=== PATIENT | female | born 1990 | race Caucasian/White ===

== ENCOUNTER → 2020-02-22 16:03 | Outpatient (BNVA) | payer MEDICAID, SELFPAY | PROVIDERS: Visit Provider Advanced Practice Midwife | DX: Z76.89 Persons encountering health services in other specified circumstances (principal) ==

== ENCOUNTER 2020-06-12 07:07 | Inpatient (IN) | payer MEDICAID, SELFPAY ==
[2020-06-12] VITALS (7 sets, daily range): BP systolic 94–131; BP diastolic 55–65; PULSE 59–88; RESP 16–18; TEMP 36–37; O2SAT 98–100; BMI 31.4
--- NOTE | ~2020-06-12 | CT_ITS ---
EXAMINATION: CT ABDOMEN AND PELVIS WITH CONTRAST CLINICAL INFORMATION: Right lower quadrant pain COMPARISON: None TECHNIQUE: Multidetector volumetric images were obtained from the superior aspect of the liver through the pubic symphysis following administration 85 mL of Omnipaque 350 intravenous contrast. Sagittal and coronal reformatted images were obtained on the technologist's workstation. Oral contrast: Yes This CT examination was performed using dose optimization techniques as appropriate, variously including the following: *Automated exposure control *Adjustment of mA and/or kV according to patient size (this includes techniques or standardized protocols for targeted exams where dose is matched to indication/reason for exam; i.e. extremities or head) *Use of iterative reconstruction technique DLP: 624 mGy-cm FINDINGS: LUNG BASES: The visualized lung bases are unremarkable. LIVER, GALLBLADDER, AND BILIARY TREE: The liver is normal in size, shape, and attenuation. No focal hepatic lesion or biliary ductal dilatation is present. The gallbladder is unremarkable with no evidence of radiopaque gallstones, gallbladder wall thickening, or obvious pericholecystic inflammatory changes. PANCREAS: Unremarkable. SPLEEN: Unremarkable. ADRENAL GLANDS: Unremarkable. KIDNEYS AND URETERS: The kidneys are normal in size, shape, and attenuation. No hydronephrosis, hydroureter, or calculi seen. No perinephric stranding. BLADDER: Unremarkable. GASTROINTESTINAL TRACT: The small and large bowel are unremarkable. The appendix is unremarkable. ABDOMINAL WALL: No significant hernia is appreciated. LYMPH NODES: Normal. VASCULAR: Unremarkable. PELVIC VISCERA: The uterus is slightly to the right of midline. Adnexa appear unremarkable. There is trace fluid in the pelvis. OSSEOUS STRUCTURES: Unremarkable. CT/CT abdomen pelvis w con IMPRESSION: Normal-appearing appendix. The uterus is slightly to the right of midline. The adnexa appear unremarkable. There is trace fluid in the pelvis.
--- NOTE | ~2020-06-12 | US_ITS ---
EXAMINATION: ULTRASOUND PELVIS AND TRANSVAGINAL. CLINICAL INFORMATION: Right lower quadrant pain, free fluid seen on CT. COMPARISON: None TECHNIQUE: Transabdominal and transvaginal imaging of pelvis is performed. FINDINGS: The uterus is anteverted and anteflexed measuring 13.2 cm in length, 4.0 cm in AP and 4.8 cm in transverse dimension. The endometrial thickness is 0.7 cm. There are small nabothian cysts in the cervix. Minimal free fluid seen in the cervix as well. The right ovary measures 4.3 x 2.7 x 3.5 cm and 21.3 mL volume. It appears unremarkable. The left ovary measures 2.7 x 1.5 x 2.7 cm and 5.7 mL volume. It appears unremarkable There is no free fluid in the cul-de-sac. US/US pelvic and transvaginal IMPRESSION: Unremarkable uterus and ovaries. Small nabothian cysts in cervix. There is minimal fluid in the cervix.
--- NOTE | 2020-06-12 07:48 | ED.ABDPAIN ---
HPI - Abdominal Pain General Chief Complaint: Abdominal Pain Stated Complaint: low rt abd pain Time Seen by Provider: 06/12/20 07:29 Source: patient Mode of arrival: ambulatory Limitations: no limitations History of Present Illness HPI narrative: Patient comes to the emergency room complaining of right lower quadrant pain. Patient states it started last night around 20:00. Patient denies nausea vomiting or diarrhea. Patient states initially it was a bit achy, but the pain got worse throughout the night. This morning patient called her primary care physician and patient was instructed to come to the emergency room. Patient states the pain is dull, constant, nonradiating, 6/10. Patient denies chest pain, no shortness of breath, no dysuria. Patient denies vaginal discharge, states she has no concerns for STDs MD elicited complaint: abdominal pain Related Data Previous Rx's Medication Instructions Recorded norethindrone 1.5 mg-ethinyl 1 tab PO DAILY #28 tab 03/25/20 estradiol 30 mcg(21)/iron 75 mg(7) tablet Allergies Allergy/AdvReac Type Severity Reaction Status Date / Time No Known Drug Allergies Allergy Mild NONE Verified 02/22/20 16:20 [NO KNOWN DRUG ALLERGIES] metoclopramide [From Reglan] AdvReac Irritable Verified 06/12/20 07:41 latex Allergy Unknown hives Uncoded 08/22/19 00:00 Review of Systems Review of Systems Constitutional : No Weight loss, No Fever, No Chills, No Night Sweats, No Fatigue, No Malaise ENT/Mouth : No Hearing loss, No Ear Pain, No Nasal Congestion, No Sinus Pain, No Hoarseness, No sore throat, No Rhinorrhea, No Swallowing Difficulty Eyes: No Eye Pain, No Swelling, No Redness, No Foreign Body, No Discharge, No Vision Changes Cardiovascular : No Chest Pain, No SOB, No Dyspnea on Exertion, No Orthopnea, No Edema, No Palpitations Respiratory : No Cough, No Sputum, No Wheezing, No Smoke Exposure, No Dyspnea Gastrointestinal : No Nausea, No Vomiting, No Diarrhea, No Constipation, complaining of 6/10 right lower quadrant pain No Hematochezia, No Melena Genitourinary : no irregular bleeding, No Dysuria, No Urinary Frequency, No Hematuria, No Urinary Incontinence, No Urgency, No Flank Pain, No Urinary Flow Changes, No Hesitancy Musculoskeletal : No joint pain, No Myalgias, No Joint Swelling Skin : No Skin Lesions, No rash Neuro : No Weakness, No Numbness, No Paresthesias, No Loss of Consciousness, No Dizziness, No Headache Psych : No Anxiety/Panic, No Depression, No SI/HI/AH/VH, No Social Issues, Heme/Lymph: No Bruising, No Bleeding,No Lymphadenopathy Endocrine : No Polyuria, No Polydipsia, No Temperature Intolerance Physical Exam Vital Signs: Vital Signs: Last Vital Signs Temp 98.2 F 06/12/20 12:09 Pulse 70 06/12/20 12:09 Resp 17 06/12/20 12:09 BP 97/57 L 06/12/20 12:09 Pulse Ox 99 06/12/20 12:09 Body Mass Index 31.4 Appearance: Alert. Oriented X3. No acute distress. Eyes: Pupils equal, round and reactive to light. ENT: Pharynx normal. Neck: Normal inspection. Neck supple. No lymph nodes noted. No crepitus CVS: Normal heart rate and rhythm. Pulses normal. Normal S1 and S2 Respiratory: No respiratory distress. Breath sounds normal. No Wheezing. No rales Abdomen: Soft tender to palpation over the McBurney's point, positive obturator sign, negative Yo sign, No rigidity. No distention Skin: Skin warm and dry. Normal skin color. Normal skin turgor. Extremities: No lower extremity edema. No lower extremity edema. No Lacerations. No Rash Neuro: Oriented X 3. No motor deficit. No sensory deficit. Moving all extermities. No slurred speech. Course Course Course Narrative: I discussed the labs and CT scan with the patient, patient continues having right lower quadrant pain. Patient is now going to be going for a pelvic ultrasound Pelvic ultrasound did not show any pathology that could explain the patient's pain. Pelvic exam did not show any discharge or had any cervical motion tenderness. Labs for STDs pending. I discussed the patient with Dr. Davila, he will evaluate the patient Dr. Davila evaluated the patient, at this time appendicitis is not suspect. Recommendations: OBGYN consult Dr. kimberly nuñez to evaluate the patient, recommendations are to start patient on p.o. antibiotics, Flagyl and levofloxacin. Discussed with patient, she states that she is still having significant pain in the right lower quadrant. Patient will be admitted for observation by Dr. Davila [facility] [place] - Abdominal Pain Lab Data Result diagrams: 06/12/20 07:48 06/12/20 07:48 Labs: Lab Results 06/12/20 06/12/20 06/12/20 Range/Units 07:48 07:48 07:48 WBC 9.1 (4.8-10.8) X10*3/uL RBC 4.14 L (4.20-5.50) X10*6/uL Hgb 11.5 L (12.0-16.0) g/dl Hct 37.0 (37-47) % MCV 89.4 (80-98) fL MCH 27.8 (27.0-33.0) pg MCHC 31.1 (31.0-35.0) g/dl RDW 14.0 (11.0-16.0) % Plt Count 425 H (160-400) X10*3/uL MPV 9.3 L (9.4-12.3) fL Immature Gran % (Auto) 0.2 (0.0-0.4) % Neut % (Auto) 68.8 (45-73) % Lymph % (Auto) 22.4 (20-40) % [place] % (Auto) 6.3 (2-11) % Eos % (Auto) 1.5 (0-4) % Baso % (Auto) 0.8 (0-2) % Lymph # (Auto) 2.1 (1.2-4.9) X10*3/uL [place] # (Auto) 0.6 (0.1-1.2) X10*3/uL Eos # (Auto) 0.1 (0.0-0.4) X10*3/uL Baso # (Auto) 0.1 (0.0-0.2) X10*3/uL Abs Immat Gran (auto) 0.02 (0.00-0.03) X10*3/uL Absolute Neuts (auto) 6.3 (2.0-8.3) X10*3/uL Absolute Nucleated RBC 0.000 (0.0-0.012) X10*3/uL Nucleated RBC % (auto) 0.0 (0.0-0.2) /100WBC Sodium 137 (135-145) mmol/L Potassium 4.1 (3.3-5.1) mmol/L Chloride 106 (96-108) mmol/L Carbon Dioxide 22 (22-29) mmol/L Anion Gap 13 (12-20) BUN 9 (9-16) mg/dL Creatinine 0.78 (0.5-1.4) mg/dL Estim Creat Clear Calc 102.9 Estimated GFR > 60 Random Glucose 100 (60-115) mg/dL Calcium 8.5 (8.4-10.2) mg/dL Total Bilirubin 0.3 (0.0-1.0) mg/dL Direct Bilirubin 0.2 (0.0-0.5) mg/dL AST 18 (5-31) U/L ALT 16 (0-31) U/L Alkaline Phosphatase 52 (39-117) U/L Total Protein 7.1 (6.5-8.0) g/dL Albumin 4.0 (3.5-5.0) g/dL Lipase 30 (8-78) U/L Urine Color YELLOW Urine Appearance CLEAR Urine pH 6.5 (5.0-8.0) Ur Specific [place] 1.020 (1.005-1.025) Urine Protein NEG (NEG-TRACE) MG/DL Urine Glucose (UA) NEG (NEG) MG/DL Urine Ketones NEG (NEG) MG/DL Urine Blood TRACE (NEG) Urine Nitrite NEG (NEG) Ur Leukocyte Esterase NEG (NEG) Urine RBC 0-2 (0) /HPF Urine WBC 0-2 (0-4) /HPF Ur Squamous Epith Cells 3+ /LPF Urine Bacteria TRACE /LPF Urine Test (NEGATIVE) 06/12/20 Range/Units 07:48 WBC (4.8-10.8) X10*3/uL RBC (4.20-5.50) X10*6/uL Hgb (12.0-16.0) g/dl Hct (37-47) % MCV (80-98) fL MCH (27.0-33.0) pg MCHC (31.0-35.0) g/dl RDW (11.0-16.0) % Plt Count (160-400) X10*3/uL MPV (9.4-12.3) fL Immature Gran % (Auto) (0.0-0.4) % Neut % (Auto) (45-73) % Lymph % (Auto) (20-40) % [place] % (Auto) (2-11) % Eos % (Auto) (0-4) % Baso % (Auto) (0-2) % Lymph # (Auto) (1.2-4.9) X10*3/uL [place] # (Auto) (0.1-1.2) X10*3/uL Eos # (Auto) (0.0-0.4) X10*3/uL Baso # (Auto) (0.0-0.2) X10*3/uL Abs Immat Gran (auto) (0.00-0.03) X10*3/uL Absolute Neuts (auto) (2.0-8.3) X10*3/uL Absolute Nucleated RBC (0.0-0.012) X10*3/uL Nucleated RBC % (auto) (0.0-0.2) /100WBC Sodium (135-145) mmol/L Potassium (3.3-5.1) mmol/L Chloride (96-108) mmol/L Carbon Dioxide (22-29) mmol/L Anion Gap (12-20) BUN (9-16) mg/dL Creatinine (0.5-1.4) mg/dL Estim Creat Clear Calc Estimated GFR Random Glucose (60-115) mg/dL Calcium (8.4-10.2) mg/dL Total Bilirubin (0.0-1.0) mg/dL Direct Bilirubin (0.0-0.5) mg/dL AST (5-31) U/L ALT (0-31) U/L Alkaline Phosphatase (39-117) U/L Total Protein (6.5-8.0) g/dL Albumin (3.5-5.0) g/dL Lipase (8-78) U/L Urine Color Urine Appearance Urine pH (5.0-8.0) Ur Specific [place] (1.005-1.025) Urine Protein (NEG-TRACE) MG/DL Urine Glucose (UA) (NEG) MG/DL Urine Ketones (NEG) MG/DL Urine Blood (NEG) Urine Nitrite (NEG) Ur Leukocyte Esterase (NEG) Urine RBC (0) /HPF Urine WBC (0-4) /HPF Ur Squamous Epith Cells /LPF Urine Bacteria /LPF Urine Test NEGATIVE (NEGATIVE) Imaging Data CT scan - abdomen: Radiologist's impression: FINDINGS: LUNG BASES: The visualized lung bases are unremarkable. LIVER, GALLBLADDER, AND BILIARY TREE: The liver is normal in size, shape, and attenuation. No focal hepatic lesion or biliary ductal dilatation is present. The gallbladder is unremarkable with no evidence of radiopaque gallstones, gallbladder wall thickening, or obvious pericholecystic inflammatory changes. PANCREAS: Unremarkable. SPLEEN: Unremarkable. ADRENAL GLANDS: Unremarkable. KIDNEYS AND URETERS: The kidneys are normal in size, shape, and attenuation. No hydronephrosis, hydroureter, or calculi seen. No perinephric stranding. BLADDER: Unremarkable. GASTROINTESTINAL TRACT: The small and large bowel are unremarkable. The appendix is unremarkable. ABDOMINAL WALL: No significant hernia is appreciated. LYMPH NODES: Normal. VASCULAR: Unremarkable. PELVIC VISCERA: The uterus is slightly to the right of midline. Adnexa appear unremarkable. There is trace fluid in the pelvis. OSSEOUS STRUCTURES: Unremarkable. CT/CT abdomen pelvis w con IMPRESSION: Normal-appearing appendix. The uterus is slightly to the right of midline. The adnexa appear unremarkable. There is trace fluid in the pelvis. Discharge Plan Discharge Prescriptions: No Action norethindrone-e.estradiol-iron [Junel FE 1.5/30 (28)] 1.5 mg-30 mcg (21)/75 mg (7) tablet 1 tab PO DAILY Qty: 28 RF: 11 PMFSH Past Medical History Medical History Anemia Right lower quadrant pain Surgical History Hx of section Pilonidal cyst Family History Family History Mother Breast cancer Maternal Grandmother Breast cancer Diabetes mellitus Paternal Grandmother Breast cancer Diabetes mellitus CVD (cardiovascular disease) Father Diabetes mellitus HTN (hypertension) CVD (cardiovascular disease) Paternal Uncle Diabetes mellitus Social History Social History Alcohol intake: current Alcohol intake frequency: holidays/special occasions only Alcohol type: wine Smoking Status: Never smoker Use of substances other than those prescribed or required for medical reasons: No Advance Directives: No Advance Directives Information Provided: No Gender identity: female
[2020-06-12 07:55] LABS: MANUAL DIFF FLAG NO
[2020-06-12 08:00] LABS: Glucose Urine UA NEG (NEG); Leukocyte Esterase Urine NEG (NEG); Nitrite Urine NEG (NEG); PH 6.5 (5.0-8.0); Urine Blood TRACE (NEG); Urine Ketones NEG (NEG); Urine Protein NEG (NEG-TRACE)
[2020-06-12 08:01] LABS: Basophils Absolute Auto 0.1 X10*3/uL (0.0-0.2); Basophils Percent Auto 0.8 % (0-2); Eosinophils Absolute Auto 0.1 X10*3/uL (0.0-0.4); Eosinophils Percent Auto 1.5 % (0-4); Hemoglobin 11.5 g/dl (12.0-16.0); Imm Gran Abs Auto 0.02 X10*3/uL (0.00-0.03); Imm Gran Pct Auto 0.2 % (0.0-0.4); Lymphocytes Absolute Auto 2.1 X10*3/uL (1.2-4.9); Lymphocytes Percent Auto 22.4 % (20-40); Mean Corpuscular HGB Conc 31.1 g/dl (31.0-35.0); Mean Corpuscular Hemoglobin 27.8 pg (27.0-33.0); Mean Corpuscular Volume 89.4 fL (80-98); Mean Platelet Volume 9.3 fL (9.4-12.3); Monocytes Absolute Auto 0.6 X10*3/uL (0.1-1.2); Monocytes Percent Auto 6.3 % (2-11); Neutrophils Absolute Auto 6.3 X10*3/uL (2.0-8.3); Neutrophils Percent Auto 68.8 % (45-73); Platelet Count 425 X10*3/uL (160-400); Red Blood Count 4.14 X10*6/uL (4.20-5.50); White Blood Count 9.1 X10*3/uL (4.8-10.8)
[2020-06-12] MEDS: 0.9 % Sodium Chloride 1,000 ML 999 ML IVCONT (08:02)
[2020-06-12] MEDS: ondansetron HCL 4 MG/2 ML VIAL IVPUSH (08:03)
[2020-06-12] MEDS: Morphine Sulfate 4 MG/ML CARTRIDGE IVPUSH ×2 (08:03→13:32)
[2020-06-12 08:04] LABS: Appearance Urine CLEAR; Color Urine YELLOW
[2020-06-12 08:05] LABS: UPreg QC Valid YES; Urine Pregnancy NEGATIVE (NEGATIVE)
[2020-06-12 08:13] LABS: Bacteria Urine TRACE /LPF; RBC Urine 0-2 /HPF (0); Squamous Epithelial Cell Urine 3+ /LPF; WBC Urine 0-2 /HPF (0-4)
[2020-06-12 08:20] LABS: Alanine Aminotransferase 16 U/L (0-31); Alkaline Phosphatase 52 U/L (39-117); Anion Gap 13 (12-20); Aspartate Amino Transferase 18 U/L (5-31); Bilirubin Direct 0.2 mg/dL (0.0-0.5); Bilirubin Total 0.3 mg/dL (0.0-1.0); Blood Urea Nitrogen 9 mg/dL (9-16); Calcium 8.5 mg/dL (8.4-10.2); Carbon Dioxide 22 mmol/L (22-29); Chloride 106 mmol/L (96-108); Creatinine Clr Calc Pharmacy 102.9; Estimated Glomerular Filt Rate > 60; Glucose Random 100 mg/dL (60-115); Lipase 30 U/L (8-78); Potassium 4.1 mmol/L (3.3-5.1); Sodium 137 mmol/L (135-145); Total Protein 7.1 g/dL (6.5-8.0)
[2020-06-12] MEDS: iohexoL 350 MG/ML 75 ML INFUS..BTL IV (09:08)
[2020-06-12] MEDS: Ketorolac Tromethamine 30 MG/ML VIAL IVPUSH (10:44)
--- NOTE | 2020-06-12 12:11 | PC.NURSE ---
Patient a&ox3, vss, pt had internal exam performed by provider, pt c/o 09/21 rt abd pain, dr. valenzuela in room to assess patient, will continue to monitor.
--- NOTE | 2020-06-12 12:51 | PM.CNGS ---
History of Present Illness Consult details Consult date: 06/12/20 Narrative: 30-year-old female referred for right lower quadrant pain. She is otherwise healthy and once both early well only yesterday. However, last night, she said she started have sent in on the right no quadrant deep toward the pelvic area. She since this persisted throughout the night the pain was non remitting so went to the emergency room early this morning. She any GI complaints. She denies any vaginal discharge patient has any nausea or vomiting. He denies any fever or chills. He says she does not have any significant medical problems. Review of Systems Constitutional: Constitutional: Denies chills and Denies fever(s) Cardiovascular: Cardiovascular: Denies chest pain, Denies dyspnea and Denies dyspnea on exertion Respiratory: Respiratory: Denies cough, Denies dyspnea and Denies dyspnea on exertion Gastrointestinal: Gastrointestinal: Denies hematochezia and Denies change in bowel habits Genitourinary: Genitourinary: Denies hematuria Musculoskeletal: Musculoskeletal: Denies back pain and Denies limited range of motion Neurologic: Denies focal weakness and Denies convulsions Psychiatric: Psychiatric: Denies depression and Denies mood swings [facility] Past Medical History Medical History Anemia Right lower quadrant pain Family History Family History Mother Breast cancer Maternal Grandmother Breast cancer Diabetes mellitus Paternal Grandmother Breast cancer Diabetes mellitus CVD (cardiovascular disease) Father Diabetes mellitus HTN (hypertension) CVD (cardiovascular disease) Paternal Uncle Diabetes mellitus Surgical History Surgical History Hx of section Pilonidal cyst Social History Social History Alcohol intake: current Alcohol intake frequency: holidays/special occasions only Alcohol type: wine Smoking Status: Never smoker Use of substances other than those prescribed or required for medical reasons: No Advance Directives: No Advance Directives Information Provided: No Gender identity: female Meds Allergies Allergy/AdvReac Type Severity Reaction Status Date / Time No Known Drug Allergies Allergy Mild NONE Verified 02/22/20 16:20 [NO KNOWN DRUG ALLERGIES] metoclopramide [From Reglan] AdvReac Irritable Verified 06/12/20 07:41 latex Allergy Unknown hives Uncoded 08/22/19 00:00 Home Medications Medication Instructions Recorded Confirmed Last Taken Type No Known Home Meds 06/12/20 06/12/20 Unknown History Physical Exam Vital Signs: Vital Signs: Last Vital Signs Temp 98.2 F 06/12/20 12:09 Pulse 70 06/12/20 12:09 Resp 17 06/12/20 12:09 BP 97/57 L 06/12/20 12:09 Pulse Ox 99 06/12/20 12:09 Body Mass Index 31.4 Const: General: comfortable and no acute distress Orientation/consciousness: patient oriented x3 Neck: Neck: Yes no lymphadenopathy Resp: Auscultation: clear to auscultation bilaterally Cardio: Rhythm: regular rhythm GI: Other: Tender on the right lower quadrant was a pelvic area, Palpation (GI): Soft to palpation, Tenderness to palpation present (GI) and no guarding Neuro: General: patient oriented x3 Results Labs Result diagrams: 06/12/20 07:48 06/12/20 07:48 Labs: Abnormal lab results 06/12/20 Range/Units 07:48 RBC 4.14 L (4.20-5.50) X10*6/uL Hgb 11.5 L (12.0-16.0) g/dl Plt Count 425 H (160-400) X10*3/uL MPV 9.3 L (9.4-12.3) fL Short CBC 06/12/20 Range/Units 07:48 WBC 9.1 (4.8-10.8) X10*3/uL Hgb 11.5 L (12.0-16.0) g/dl Hct 37.0 (37-47) % Plt Count 425 H (160-400) X10*3/uL BMP 06/12/20 07:48 Sodium 137 Potassium 4.1 Chloride 106 Carbon Dioxide 22 BUN 9 Creatinine 0.78 Calcium 8.5 Liver Function 06/12/20 Range/Units 07:48 Total Bilirubin 0.3 (0.0-1.0) mg/dL Direct Bilirubin 0.2 (0.0-0.5) mg/dL AST 18 (5-31) U/L ALT 16 (0-31) U/L Alkaline Phosphatase 52 (39-117) U/L Albumin 4.0 (3.5-5.0) g/dL Urine 06/12/20 06/12/20 Range/Units 07:48 07:48 Urine Color YELLOW Urine Appearance CLEAR Urine pH 6.5 (5.0-8.0) Ur Specific [place] 1.020 (1.005-1.025) Urine Protein NEG (NEG-TRACE) MG/DL Urine Glucose (UA) NEG (NEG) MG/DL Urine Test NEGATIVE (NEGATIVE) All other labs normal. Assessment and Plan (1) Right lower quadrant pain: Problem details: Possible PID Status: Acute She has significant pain and tenderness the examination on the right lower quadrant. I have extensively reviewed her CT scan. There is no suggestion of any inflammatory process in a GI tract. The appendix us not appear inflamed. She does have a mildly enlarged if there is which appears to be more of the right side. She does not have any leukocytosis patient and does not of any other GI complaints. Her overall clinical picture does not suggest acute appendicitis. I do not see any signs of any other intra-abdominal pathology either. I have recommended for to be evaluated by OBGYN.
--- NOTE | 2020-06-12 13:09 | PM.GYNCN ---
FINISHER MAP AND CHART - CN: HPI Data of Consult Consult date: 06/12/20 Primary Care Provider: Wayne Beltran MD Consult Narrative Narrative: I was consulted regarding Reji Echeverria who is a 30 year old female who presented emergency room with right lower quadrant pain that started yesterday at 20:00 and got worse over the last 18 hours seated at urinary symptoms no nausea or vomiting or diarrhea. Patient reports history of fever of 101.4 2 days ago. The workup done in the emergency room included CBC, chemistry, urine, urine test, pelvic ultrasound and abdominal and pelvic CT all negative , normal appendix , minimal fluid in the cervix, GC and chlamydia and Trichomonas sent. results pending. Surgical consult, unlikely appendicitis cc:: CC: IMPROVEMENT SPEC - Review of Systems Review of Systems ROS Unobtainable: All systems reviewed & are unremarkable except as noted in HPI and below Cardiovascular: Denies Palpatations, Loss of consciousness and Chest pain Respiratory: Denies Cough, Wheezing and Shortness of breath Musculoskeletal: Denies Low back pain Gastrointestinal: Denies Heartburn, Constipation, Diarrhea, Nausea and Vomiting Genitourinary: Denies Pain with urination, Burning with urination and Urinary frequency Neurological: Denies Migranes Psychological: Denies Depression OB PMFSH Past Medical History Medical History Anemia Right lower quadrant pain Family History Family History Mother Breast cancer Maternal Grandmother Breast cancer Diabetes mellitus Paternal Grandmother Breast cancer Diabetes mellitus CVD (cardiovascular disease) Father Diabetes mellitus HTN (hypertension) CVD (cardiovascular disease) Paternal Uncle Diabetes mellitus Surgical History Surgical History Hx of section Pilonidal cyst Social History Social History Alcohol intake: current Alcohol intake frequency: holidays/special occasions only Alcohol type: wine Smoking Status: Never smoker Use of substances other than those prescribed or required for medical reasons: No Advance Directives: No Advance Directives Information Provided: No Gender identity: female Meds Allergies Allergy/AdvReac Type Severity Reaction Status Date / Time No Known Drug Allergies Allergy Mild NONE Verified 02/22/20 16:20 [NO KNOWN DRUG ALLERGIES] metoclopramide [From Reglan] AdvReac Irritable Verified 06/12/20 07:41 latex Allergy Unknown hives Uncoded 08/22/19 00:00 FINISHER MAP AND CHART Physical Exam Vitals Vital signs: Temp Pulse Resp BP Pulse Ox 98.2 F 70 17 97/57 L 99 06/12/20 12:09 06/12/20 12:09 06/12/20 12:09 06/12/20 12:09 06/12/20 12:09 Body Mass Index 31.4 Constitutional General Appearance: Healthy appearing, Well-nourished and Well-developed Psychiatric Mood and Affect: active and alert, normal mood and normal affect Skin Appearance: No rashes and No lesions Lungs Respiratory Effort: No intercostal retractions Auscultation: Clear to auscultation Cardiovascular Auscultation: RRR Abdomen Auscultation/Inspection/Palpation: Normal bowel sounds, Soft, Non-distended and No tenderness Female Genitalia (Pelvic) Bladder/Urethra: Normal meatus Vulva: No lesions Uterus: Tender Adnexa/Parametria: Adnexal Tenderness: Right and Adnexal Mass: None FINISHER MAP AND CHART - Results Labs CBC & Chem 7: 06/12/20 07:48 06/12/20 07:48 Labs: Short CBC 06/12/20 Range/Units 07:48 WBC 9.1 (4.8-10.8) X10*3/uL Hgb 11.5 L (12.0-16.0) g/dl Hct 37.0 (37-47) % Plt Count 425 H (160-400) X10*3/uL BMP 06/12/20 07:48 Sodium 137 Potassium 4.1 Chloride 106 Carbon Dioxide 22 BUN 9 Creatinine 0.78 Calcium 8.5 Liver Function 06/12/20 Range/Units 07:48 Total Bilirubin 0.3 (0.0-1.0) mg/dL Direct Bilirubin 0.2 (0.0-0.5) mg/dL AST 18 (5-31) U/L ALT 16 (0-31) U/L Alkaline Phosphatase 52 (39-117) U/L Albumin 4.0 (3.5-5.0) g/dL Urine 06/12/20 06/12/20 Range/Units 07:48 07:48 Urine Color YELLOW Urine Appearance CLEAR Urine pH 6.5 (5.0-8.0) Ur Specific [place] 1.020 (1.005-1.025) Urine Protein NEG (NEG-TRACE) MG/DL Urine Glucose (UA) NEG (NEG) MG/DL Urine Test NEGATIVE (NEGATIVE) Assessment and Plan (1) Right lower quadrant pain: Problem details: Possible PID Status: Acute Recommend COVID-19 test because of history of fever. Given the workup including CBC, chemistry, urine, test, CT of abdomen and pelvis and ultrasound all negative, positive abdominal tenderness and uterine adnexal tenderness, will treat for PID with Levaquin 500 mg p.o. q.d. and Flagyl 500 mg p.o. b.i.d. for 14 days. Instructions given to the patient to call if fever occur above 100.4, worsening of the abdominal pain, nausea and vomiting, otherwise follow-up in the office in few days
--- NOTE | 2020-06-12 13:34 | PC.NURSE ---
patient medicated per order, vss
--- NOTE | 2020-06-12 14:54 | PM.HPGS ---
History of Present Illness History of Present Illness Date of Service: 06/12/20 Chief complaint: RLQ pain Narrative: 30-year-old female referred for right lower quadrant pain. She is otherwise healthy and once both early well only yesterday. However, last night, she said she started have sent in on the right no quadrant deep toward the pelvic area. She since this persisted throughout the night the pain was non remitting so went to the emergency room early this morning. She any GI complaints. She denies any vaginal discharge patient has any nausea or vomiting. She denies any fever or chills. She says she does not have any significant medical problems. Review of Systems Constitutional: Constitutional: Denies chills and Denies fever(s) Cardiovascular: Cardiovascular: Denies chest pain, Denies dyspnea and Denies dyspnea on exertion Respiratory: Respiratory: Denies cough, Denies dyspnea and Denies dyspnea on exertion Gastrointestinal: Gastrointestinal: Denies hematochezia and Denies change in bowel habits Genitourinary: Genitourinary: Denies hematuria Musculoskeletal: Musculoskeletal: Denies back pain and Denies limited range of motion Neurologic: Denies focal weakness and Denies convulsions Psychiatric: Psychiatric: Denies depression and Denies mood swings PMFSH Past Medical History Medical History Anemia Right lower quadrant pain Family History Family History Mother Breast cancer Maternal Grandmother Breast cancer Diabetes mellitus Paternal Grandmother Breast cancer Diabetes mellitus CVD (cardiovascular disease) Father Diabetes mellitus HTN (hypertension) CVD (cardiovascular disease) Paternal Uncle Diabetes mellitus Surgical History Surgical History Hx of section Pilonidal cyst Social History Social History Alcohol intake: current Alcohol intake frequency: holidays/special occasions only Alcohol type: wine Smoking Status: Never smoker Use of substances other than those prescribed or required for medical reasons: No Advance Directives: No Advance Directives Information Provided: No Gender identity: female Meds Allergies Allergy/AdvReac Type Severity Reaction Status Date / Time No Known Drug Allergies Allergy Mild NONE Verified 02/22/20 16:20 [NO KNOWN DRUG ALLERGIES] metoclopramide [From Reglan] AdvReac Irritable Verified 06/12/20 07:41 latex Allergy Unknown hives Uncoded 08/22/19 00:00 Active Medications: Current Medications Generic Name Dose Route Start Last Admin Trade Name Francine PRN Reason Stop Dose Admin Acetaminophen 650 mg 06/12/20 14:36 Acetaminophen Supp 650 Mg Supp.Rect NM Q6H PRN Pain, Mild (Pain Scale 1-3) Dextrose/Sodium Chloride 1,000 mls @ 60 mls/hr 06/12/20 14:45 D5ns IVCONT .[id number] [facility] Levofloxacin 500 mg 06/13/20 09:00 Levofloxacin 500 Mg Tablet PO DAILY [facility] Metronidazole 500 mg 06/12/20 15:00 Metronidazole 500 Mg Tablet PO TID [facility] Morphine Sulfate 3 mg 06/12/20 14:40 Morphine Sulfate 4 Mg/Ml Cartridge IVPUSH Q4H PRN pain Ondansetron HCl 4 mg 06/12/20 14:36 Ondansetron Hcl 4 Mg/2 Ml Vial IVPUSH Q8H PRN Nausea and Vomiting Oxycodone HCl 5 mg 06/12/20 14:36 Oxycodone Hcl Immed Release 5 Mg Tablet PO Q6H PRN Pain, Moderate (Pain Scale 4-6 Pharmacy Consult 1 each 06/12/20 14:35 Consult Rx Perform Med Rec MISCELLANE ONCE PRN Consult order Sodium Chloride 3 ml 06/12/20 16:00 0.9 % Sodium Chloride Flush 3 Ml Syringe [facility] Home Medications Medication Instructions Recorded Confirmed Last Taken Type No Known Home Meds 06/12/20 06/12/20 Unknown History Physical Exam Vital Signs: Vital Signs: Last Vital Signs Temp 98.3 F 06/12/20 13:34 Pulse 60 06/12/20 13:34 Resp 18 06/12/20 13:34 BP 105/63 06/12/20 13:34 Pulse Ox 98 06/12/20 13:34 Body Mass Index 31.4 Const: General: comfortable and no acute distress Orientation/consciousness: patient oriented x3 Neck: Neck: Yes no lymphadenopathy Resp: Auscultation: clear to auscultation bilaterally Cardio: Rhythm: regular rhythm GI: Other: Tender on the right lower quadrant towards the pelvic area Palpation (GI): Soft to palpation and Tenderness to palpation present (GI) Neuro: General: patient oriented x3 Results Results Labs: Short CBC 06/12/20 Range/Units 07:48 WBC 9.1 (4.8-10.8) X10*3/uL Hgb 11.5 L (12.0-16.0) g/dl Hct 37.0 (37-47) % Plt Count 425 H (160-400) X10*3/uL BMP 06/12/20 07:48 Sodium 137 Potassium 4.1 Chloride 106 Carbon Dioxide 22 BUN 9 Creatinine 0.78 Calcium 8.5 Liver Function 06/12/20 Range/Units 07:48 Total Bilirubin 0.3 (0.0-1.0) mg/dL Direct Bilirubin 0.2 (0.0-0.5) mg/dL AST 18 (5-31) U/L ALT 16 (0-31) U/L Alkaline Phosphatase 52 (39-117) U/L Albumin 4.0 (3.5-5.0) g/dL Urine 06/12/20 06/12/20 Range/Units 07:48 07:48 Urine Color YELLOW Urine Appearance CLEAR Urine pH 6.5 (5.0-8.0) Ur Specific [place] 1.020 (1.005-1.025) Urine Protein NEG (NEG-TRACE) MG/DL Urine Glucose (UA) NEG (NEG) MG/DL Urine Test NEGATIVE (NEGATIVE) Abdomen CT scan report/results: report reviewed and image reviewed CT scan - pelvis: report reviewed and image reviewed Abdominal ultrasound report/results: report reviewed and image reviewed Assessment and Plan (1) Right lower quadrant pain: Problem details: Possible PID Status: Acute [age] year female who I have seen in the ER because of right lower quadrant pain. I have reviewed her CAT scan images. No evidence of any inflammatory process surrounding the appendix is seen. There is no other intra-abdominal pathology that could be identified. She has no leukocytosis. She was apparently seen by the router operator who had felt that pelvic inflammatory disease may be I on the differential. She was prescribed Levaquin and Flagyl for this. However, the patient says that she would not be able to go home because of her significant pain on the right lower quadrant. The emergency room physician had therefore requested me admitted the patient does of her right lower quadrant pain. Plan is to continue to keep her on Levaquin and Flagyl. I will do serial abdominal exam. I will repeat her CBC tomorrow. I will re-evaluate in the morning and likely discharge her home as it is unlikely based on clinical dated that she has any significant intra-abdominal pathology like appendicitis.
[2020-06-12] MEDS: Dextrose 5 % and 0.9 % NaCl 1,000 ML 60 ML IVCONT (15:18)
[2020-06-12] MEDS: metroNIDAZOLE 500 MG TABLET PO ×2 (15:19→21:28)
[2020-06-12] MEDS: Morphine Sulfate 4 MG/ML CARTRIDGE 3 MG IVPUSH ×2 (15:19→22:25)
--- NOTE | 2020-06-12 15:20 | PC.NURSE ---
pt medicated per order, ivf started per order, pt c/o 09/21 rt abd pain- refuse po pain medication
--- NOTE | 2020-06-12 20:52 | PC.NURSE ---
call to s3 for report
[2020-06-13 03:09] VITALS: BP 101/60; PULSE 53; RESP 18; TEMP 36.8; O2SAT 99
[2020-06-13 07:22] VITALS: BP 110/57; PULSE 62; RESP 16; TEMP 36.7; O2SAT 99
[2020-06-13] MEDS: metroNIDAZOLE 500 MG TABLET PO (07:44)
[2020-06-13] MEDS: Morphine Sulfate 4 MG/ML CARTRIDGE 3 MG IVPUSH (07:44)
[2020-06-13] MEDS: levoFLOXacin 500 MG TABLET PO (07:45)
[2020-06-13] MEDS: 0.9 % Sodium Chloride Flush 3 ML SYRINGE IVFLUSH (07:45)
--- NOTE | 2020-06-13 08:07 | P.PNGS_ITS ---
Subjective Subjective Date of Service: 06/13/20 Interval history: Says she still has pain although better than yesterday No nausea or vomiting No other GI complaints Physical Exam Vital Signs: Vital Signs: Last Vital Signs Temp 98.0 F 06/13/20 07:22 Pulse 62 06/13/20 07:22 Resp 16 06/13/20 07:22 BP 110/57 L 06/13/20 07:22 Pulse Ox 99 06/13/20 07:22 Body Mass Index 31.4 Laboratory Results - last 24 hr 06/12/20 06/12/20 06/12/20 07:48 07:48 07:48 WBC 9.1 RBC 4.14 L Hgb 11.5 L Hct 37.0 MCV 89.4 MCH 27.8 MCHC 31.1 RDW 14.0 Plt Count 425 H MPV 9.3 L Immature Gran % (A uto) 0.2 Neut % (Auto) 68.8 Lymph % (Auto) 22.4 Dougherty % (Auto) 6.3 Eos % (Auto) 1.5 Baso % (Auto) 0.8 Lymph # (Auto) 2.1 Dougherty # (Auto) 0.6 Eos # (Auto) 0.1 Baso # (Auto) 0.1 Abs Immat Gran (au to) 0.02 Absolute Neuts (au to) 6.3 Absolute Nucleated RBC 0.000 Nucleated RBC % (a uto) 0.0 Sodium 137 Potassium 4.1 Chloride 106 Carbon Dioxide 22 Anion Gap 13 BUN 9 Creatinine 0.78 Estim Creat Clear Calc 102.9 Estimated GFR > 60 Random Glucose 100 Calcium 8.5 Total Bilirubin 0.3 Direct Bilirubin 0.2 AST 18 ALT 16 Alkaline Phosphata se 52 Total Protein 7.1 Albumin 4.0 Lipase 30 Urine RBC 0-2 Urine WBC 0-2 Ur Squamous Epith Cells 3+ Urine Bacteria TRACE Const: General: no acute distress Resp: Effort & Inspection: normal respiratory effort Cardio: Rhythm: regular rhythm GI: Other: Soft, tender on the right lower quadrant especially towards the pelvis Progress Note: A&P Assessment and plan (1) Right lower quadrant pain: Problem details: Possible PID Status: Acute Assessment and Plan: Unlikely to be appendicitis Better than yesterday although still having pain no leukocytosis CT reviewed multiple times - no obvious acute intraabdl pathology Will advance diet Possible DC home today with pain medications Will continue with Flagyl and Levaquin as recommended by gyne for possible PID Discussed above with patient Fall Risk Details Current Medications: Current Medications Generic Name Dose Route Start Last Admin Trade Name Francine PRN Reason Stop Dose Admin Acetaminophen 650 mg 06/12/20 14:36 Acetaminophen Supp 650 Mg Supp.Rect DE Q6H PRN Pain, Mild (Pain Scale 1-3) Dextrose/Sodium Chloride 1,000 mls @ 60 mls/hr 06/12/20 14:45 06/13/20 08:02 D5ns IVCONT Infused .[id number] PADDY Infusion Levofloxacin 500 mg 06/13/20 09:00 06/13/20 07:45 Levofloxacin 500 Mg Tablet PO 500 mg DAILY PADDY Administration Metronidazole 500 mg 06/12/20 15:00 06/13/20 07:44 Metronidazole 500 Mg Tablet PO 500 mg TID PADDY Administration Morphine Sulfate 3 mg 06/12/20 14:40 06/13/20 07:44 Morphine Sulfate 4 Mg/Ml Cartridge IVPUSH 3 mg Q4H PRN Administration pain Ondansetron HCl 4 mg 06/12/20 14:36 Ondansetron Hcl 4 Mg/2 Ml Vial IVPUSH Q8H PRN Nausea and Vomiting Oxycodone HCl 5 mg 06/12/20 14:36 Oxycodone Hcl Immed Release 5 Mg Tablet PO Q6H PRN Pain, Moderate (Pain Scale 4-6 Pharmacy Consult 1 each 06/12/20 14:35 Consult Rx Perform Med Rec MISCELLANE ONCE PRN Consult order Sodium Chloride 3 ml 06/12/20 16:00 06/13/20 07:45 0.9 % Sodium Chloride Flush 3 Ml Syringe IVFLUSH 3 ml QSHIFT PADDY Administration Time Spent With Patient Time: Total time spent is greater than 50% in coordination of care (as documented) at patient's floor/unit and/or counseling patient: Time with patient: 15 - 24 minutes
[2020-06-13 08:08] LABS: MANUAL DIFF FLAG NO
[2020-06-13 08:12] LABS: Basophils Percent Auto 0.7 % (0-2); Eosinophils Absolute Auto 0.1 X10*3/uL (0.0-0.4); Hematocrit 34.2 % (37-47); Hemoglobin 10.9 g/dl (12.0-16.0); Imm Gran Abs Auto 0.01 X10*3/uL (0.00-0.03); Imm Gran Pct Auto 0.2 % (0.0-0.4); Lymphocytes Absolute Auto 1.9 X10*3/uL (1.2-4.9); Lymphocytes Percent Auto 31.8 % (20-40); Mean Corpuscular HGB Conc 31.9 g/dl (31.0-35.0); Mean Corpuscular Hemoglobin 28.9 pg (27.0-33.0); Mean Corpuscular Volume 90.7 fL (80-98); Mean Platelet Volume 9.4 fL (9.4-12.3); Monocytes Absolute Auto 0.4 X10*3/uL (0.1-1.2); Monocytes Percent Auto 6.9 % (2-11); Neutrophils Absolute Auto 3.5 X10*3/uL (2.0-8.3); Neutrophils Percent Auto 58.4 % (45-73); Platelet Count 376 X10*3/uL (160-400); Red Blood Count 3.77 X10*6/uL (4.20-5.50); Red Cell Distribution Width 14.3 % (11.0-16.0); White Blood Count 5.9 X10*3/uL (4.8-10.8)
[2020-06-13] MEDS: ondansetron HCL 4 MG/2 ML VIAL IVPUSH (09:49)
--- NOTE | 2020-06-13 10:43 | MHC.CM.PN ---
NURSE SURVEY FIELD TECHNICIAN NOTE ELECTRONIC MEDICAL RECORD REVIEWED ALONG WITH CASE DISCUSSED WITH STAFF NURSE MET WITH PATIENT . PATIENT LIVES WITH HER AND CHILDREN SHE IS ACTIVE ,INDEPENDENT IN ALL ADLS AND MOBILITY, WITH OUT ANY DEVICES. DHE IS ANTICIPATED TO BE DISCHARGED HOME , SHEVERBALIZES A LITTLE FRUSTRATION THAT SHE WILL BE DISCHARGED AND DOES NOT KNOW WHAT CAUSES THE PAIN, BUT ALSO WAS VERY HAPPY WITH [place] [facility] [place] , SHE REPORTED THAT ON WEDNESDAY SHE HAS APPOINTMENT WITH THE [facility]ORING MACHINE OPERATOR PHYSICIAN, DISCHARGE PLAN HOME WITH NO SERVICES PCP DR ORTIZ [facility] FAMILY
[2020-06-13 11:18] VITALS: BP 103/55; PULSE 72; RESP 16; TEMP 36.4; O2SAT 98
--- NOTE | 2020-06-13 12:18 | P.EN_ITS ---
Event Note Date of Service: 06/13/20 Event Note: reexamined now she says she continues to feel better had a little nausea after breakfast but says this resolved abd soft, tender on the right lower quadrant but seems less she looks well no fever she says she feels ready to go home I instructed her to ffup with a counter control operator for possible PID
[2020-06-13 14:28] LABS: BV Int Neg Control Negative (Negative); BV Int Pos Control Positive (Positive)
--- NOTE | 2020-06-14 15:53 | P.DS_ITS ---
DS: Providers Provider Date of Service: 06/14/20 Date of admission: 06/12/20 14:36 Primary care physician: Wayne Beltran MD DS: Diagnosis Discharge Diagnosis (1) Right lower quadrant pain: Status: Acute Problem details: The patient is a 30 year female came to emergency room because of right lower quadrant pain about 12 hours duration. She did not have any leukocytosis. Her CAT scan did not show any evidence of acute appendicitis no any acute inflammatory changes in the abdomen. She was evaluated by data entry representative and was prescribed Flagyl and Levaquin for possible PID. However the patient continued to have significant right upper quadrant pain and did not feel that she could be able to go home. The emergent physician therefore requested me to admit the patient. The patient was kept overnight for observation and serial abdominal exam. She felt movement the following day. She her diet was advanced and she continued to tolerate this. Repeat CBC did not show any leukocytosis. Her abdominal exam was benign despite her tenderness. She was therefore discharged with traction to follow up with the splicing technician. She was also given pain medications with Percocet. DS: Medications Discharge Medications Home Medications: Previous Rx's Medication Instructions Recorded levofloxacin 500 mg PO DAILY #4 tab 06/13/20 metronidazole 500 mg PO TID #12 tab 06/13/20 DS: Summary Time Spent with Patient Time attestation: Total time spent providing and/or coordinating discharge services: Discharge coordination time: Less than 30 minutes Physical Exam Vital Signs: Vital Signs: Last Vital Signs Temp 97.6 F 06/13/20 11:18 Pulse 72 06/13/20 11:18 Resp 16 06/13/20 11:18 BP 103/55 L 06/13/20 11:18 Pulse Ox 98 06/13/20 11:18 Body Mass Index 31.4 Const: General: comfortable and no acute distress Orientation/consciousness: patient oriented x3 Neck: Neck: Yes no lymphadenopathy Resp: Auscultation: clear to auscultation bilaterally Cardio: Rhythm: regular rhythm GI: Other: Has right lower quadrant tenderness Palpation (GI): Soft to palpation, Tenderness to palpation present (GI) and no guarding Neuro: General: patient oriented x3 Discharge Plan Discharge Patient Disposition: Home, Self-Care Referrals: Wayne Nguyen MD [Primary Care Provider] - Nino Davila MD [Physician] - (as needed) Discharge Medications: New metronidazole 500 mg Tablet 500 mg PO TID Qty: 12 RF: 0 levofloxacin 500 mg Tablet 500 mg PO DAILY Qty: 4 RF: 0 Discharge Orders: Discharge Order (Routine); Ordered 06/13/20 Ordered By: Nino Davila Diet: advance to usual diet Activity on Discharge: As tolerated Stand Alone Forms: Patient Portal Discharge page Activity Restrictions/Additional Instructions: Reji Echeverria was admitted to the [facility] from 06/12/2020 to 06/13/2020. Patient can return to work with no restrictions. Care Plan Goals: pain management ffup with [facility] Concerns: pain management possible pelvic inflammatory disease Plan of Treatment: anitbiotics pain management Discharge Date/Time: 06/13/20 14:55
== END 2020-06-13 14:55 | disposition home or self-care (01) | DRG 531 ==
LOC: HO.ED 07:55 → HO.EDOVER 14:53 → HO.S3 18:30
PROVIDERS: Admitting Provider Surgery; Emergency Provider Emergency Medicine; PCP Internal Medicine; Visit Provider Surgery
DX: N73.9 Female pelvic inflammatory disease, unspecified (principal)
CPT/HCPCS: 36415; 74177; 76830; 76856; 80048; 80076; 81001; 81003; 81025; 83690; 85025; 87480; 87510; 87660; 96374; 96375; 99218; 99283; 99285; J1885; J2270; J2405; Q9967

== ENCOUNTER → 2020-06-18 09:55 | Outpatient (BNVA) | payer MEDICAID, SELFPAY | PROVIDERS: PCP Internal Medicine; Visit Provider Obstetrics & Gynecology | DX: N73.0 Acute parametritis and pelvic cellulitis (principal) | CPT/HCPCS: 81003; 81025; 99212 ==

== ENCOUNTER 2022-10-23 09:19 | Outpatient (AMB) | payer MEDICAID, SELFPAY ==
--- NOTE | 2022-10-23 09:41 | A.OFFVIS_ITS ---
Intake Vital Signs 10/23/22 09:44 Height 5 ft 2 in Weight 192 lb BMI 35.1 BP 110/64 Intake Visit Reasons: Preg Consult/ok per RN Pain Management Physician Required: No Information Interpreted: non-clinical & clinical Accompanied by: Self / Same As Patient Allergies No Known Drug Allergies [NO KNOWN DRUG ALLERGIES] Allergy (Mild, Verified 10/23/22 09:44) NONE metoclopramide [From Reglan] Adverse Reaction (Verified 10/23/22 09:44) Irritable latex Allergy (Unknown, Uncoded 10/23/22 09:44) hives HPI HPI Comments History of Present Illness Details She is here for consult. Planned . LMP 08/31/22. . Normal regular cycles, EDC 06/07/23, now ~ 7.4 wks. Admits nausea and is taking PNV. No VB or pelvic pain. Denies HTN or diabetes in past pregnancies. Reports one c/s, followed by . [facility] Medical History (Updated 10/23/22 @ 12:29 by Margarita Downs CNM) Anemia Missed menses Positive test related nausea, antepartum Right lower quadrant pain Surgical History Hx of section Pilonidal cyst Family History Mother Breast cancer Maternal Grandmother Breast cancer Diabetes mellitus Paternal Grandmother Breast cancer Diabetes mellitus CVD (cardiovascular disease) Father Diabetes mellitus HTN (hypertension) CVD (cardiovascular disease) Paternal Uncle Diabetes mellitus Social History Household Members: Spouse and Children Housing: Apartment Alcohol intake: current Alcohol intake frequency: holidays/special occasions only Alcohol type: wine service: No Current occupational status: unemployed Gender identity: Female Female Reproductive History Menstrual Age of Menarche: 10 Date of last menstrual period: 08/31/22 Physical Exam Vital Signs: Last Vital Signs BP 110/64 10/23/22 09:44 BMI result Body Mass Index 35.1 Const General: cooperative, healthy appearing, comfortable, no acute distress, well developed, alert and awake Results AMB Test Urine AMB Test Urine Positive Last Edit by Sana Anand CMA on 09:52 Results Reviewed Results Reviewed: Laboratory Last Values [facility] Clinic Positive 10/23/22 09:51 Assessment & Plan Assessment & Plan (1) Positive test: Code(s): Z32.01 - Encounter for test, result positive Plan: Discussed: PTL - LOF, VB, abd pain. B6 vitamins for nausea. Rx sent to pharmacy. US scheduled. Informed due to history of c/s her , - higher risk. Consider all options for delivery. She does not care to return to [facility] for care. [facility] practice options all reviewed. Pt. to check on her options and let us know where she wants to have her care at. Once established care/appt. sign records. Advised to eat small frequent meals and stay cool and hydrated, call if unable to tolerate any foods/fluids. Reviewed when to call for any VB. Discussed to call the service here for any problems/concerns. Follow up pending US for dating/viability. (2) Missed menses: Code(s): N92.6 - Irregular menstruation, unspecified Orders: Orders AMB HCG Urine Test Today Z32.01 - Encounter for test, result positive Medications: New pyridoxine (vitamin B6) 25 mg PO TID PRN 90 tabs 0RF nausea and vomiting PNV,calcium [id number] acid 27 mg iron- 1 mg ( Vitamins Plus Low Iron) 1 tab PO DAILY 90 tabs 4RF Coding Level of Care Code Est Pt Level 3 (77906) Diagnoses Positive test Z32.01 Missed menses N92.6
[2022-10-23 09:44] VITALS: BP 110/64; BMI 35.1
== END 2022-10-23 10:06 | disposition home or self-care (01) ==
LOC: HO.HWS 09:19
PROVIDERS: PCP Internal Medicine; Visit Provider Advanced Practice Midwife
DX: Z32.01 Encounter for pregnancy test, result positive (principal); N92.6 Irregular menstruation, unspecified
CPT/HCPCS: 99213

== ENCOUNTER → 2022-10-23 09:19 | Outpatient (BNVA) | payer MEDICAID, SELFPAY | PROVIDERS: PCP Internal Medicine; Visit Provider Advanced Practice Midwife | DX: Z34.90 Encounter for supervision of normal pregnancy, unspecified, unspecified trimester (principal) | CPT/HCPCS: 81025; 99212; 99213 ==

== ENCOUNTER 2022-10-23 10:22 | Outpatient (REF) | payer MEDICAID, SELFPAY ==
--- NOTE | ~2022-10-23 | US_ITS ---
EXAMINATION: US OBSTETRICAL ULTRASOUND CLINICAL INFORMATION: Irregular menstruation. COMPARISON: None available. LMP: 08/31/2022. Gestational age by maternal dates is 7 weeks and 4 days. Estimated date of delivery by maternal dates is 06/06/2022. TECHNIQUE: Transabdominal imaging of pelvis is performed. FINDINGS: There is a single intrauterine gestational sac with visible yolk sac, embryo/fetus, and cardiac activity. There is no significant subchorionic hemorrhage or hematoma. HR: 153 beats per minute. CRL (crown rump length): 1.42 cm (7 weeks 6 days +/- 4 days). BRYANT (estimated date of delivery): 06/04/2022 +/- 4 days. MATERNAL ADNEXA: The right maternal ovary measures 3.1 x 3.4 x 2.1 cm. There is anechoic corpus luteal cyst measuring 1.8 x 1.5 x 2.0 cm. The left maternal ovary measures 2.5 x 1.9 x 1.8 cm. There is anechoic cyst measuring 1.1 x 1.0 x 1.1 cm. There is no significant maternal adnexal mass. No maternal pelvic ascites. US/US OB <= 14 weeks fetus IMPRESSION: 1. Single intrauterine gestation with ultrasound gestational age of 7 weeks 6 days +/- 4 days. 2. Estimated date of delivery is 06/04/2022 +/- 4 days. 3. No maternal adnexal mass or pelvic ascites.
== END 2022-10-23 10:23 | disposition home or self-care (01) ==
LOC: HO.US 10:22
PROVIDERS: PCP Internal Medicine; Visit Provider Advanced Practice Midwife
DX: Z34.91 Encounter for supervision of normal pregnancy, unspecified, first trimester (principal); Z3A.01 Less than 8 weeks gestation of pregnancy
CPT/HCPCS: 76801

== ENCOUNTER 2024-09-25 11:05 | Outpatient (REF) | payer MEDICAID, SELFPAY ==
--- OUTSIDE RECORDS SUMMARY | 2024-09-25 12:09 | XMS_ITS | Clinical Summary ---
Demographics Address [address] [place] [address] Work Phone Home Phone Mobile Phone Email Address Preferred Language en Marital Status Caodaism Affiliation Unknown Race Other Race Ethnic Group Unknown Author Organization [employer] Address [address] [place] [address] Care Team Providers Care Celery Tier Name Role Phone Wayne Nguyen MD Primary Care Prov ider Allergies No known active allergies Medications topiramate 50 MG tablet TAKE 1 TABLET (50 MG) BY MOUTH ONCE PER DAY. 90 tablet 06/27/19 25 Active phentermine 15 MG capsule TAKE 1 CAPSULE BY MOUTH BEFORE BREAKFAST 30 capsule 09/07/19 25 Active phentermine 15 MG capsule TAKE 1 CAPSULE BY MOUTH BEFORE BREAKFAST 30 capsule 08/05/19 25 025 Discontinued(Re order (will not trigger notification to Pharmacy)) Active Problems Problem Noted Date Diagnosed Date Overweight (BMI 25.0-29.9) 09/25/2024 Assessment & Plan (09/25/2024 10:59 AM EDT): Much improved, lost almost 60lbs in 6 months, no side effect reported, will leave on current therapy, reevaluate on next visit if treatment still needed Class 1 obesity due to exces s calories without serious comorbidity with body mass index (BMI) of 31.0 to 31.9 in adult 07/26/2024 Assessment & Plan (07/26/2024 3:20 PM EDT): Phentermine/topamax combination helped, will continue current therapy, encouraged exercise low calorie intake, follow up in 2 months Encounters Date Type Department Care Team Description 09/25/2024 10:30 AM EDT Office Visit [facility] [address] [place] [address] Wayne Nguyen MD Overweight (BMI 25.0-29.9) (Primary Dx) 09/25/2024 Travel 09/18/2024 Travel 09/05/2024 Refill [facility] [address] [place] [address] Wayne Nguyen MD 08/02/2024 Refill [facility] [address] [place] [address] Holly Sparrow MD 07/26/2024 2:30 PM EDT Telemedicine [facility] [address] [place] [address] Wayne Nguyen MD Class 1 obesity due to excess calories without serious comorbidity with body mass index (BMI) of 31.0 to 31.9 in adult (Primary Dx) 07/26/2024 Travel 07/10/2024 Population Health Risk Score [facility] () Department [address] [place] [id number] Provider, Population Health Generic 06/30/2024 Refill [facility] [address] [place] [address] Wayne Nguyen MD from Last 3 Months Immunizations Immunization Administration Dates Next Due DTP 03/14/1995, 4,1991,08/12,1991 DTaP 08/29/2012 HPV, Quadrivalent 07/01/2007,2007,12/31/19 07 Hep B, Adolescent or Pediatric 12/12/1996,1996,07/12/1996 Hib (PRP-T) 01/12/1993, 2,1991,05/12 IPV 03/14/1995, 2,1991,05/12 Influenza injectable quadriv alent IIV4 with preservative 12/23/2022,01/06/2019 Influenza, IIV3, injectable 12/23/2022, 9 MMR 03/14/1995,01/12/1993 Meningococcal MPSV4 12/03/2005 TD (adult), 2 Lf tetanus tox oid, preservative free, adsorbed 05/31/2003 Tdap 03/16/2023,01/06/2019,12/30/2006 Social History Tobacco Use Types Packs/Day Years Used Date Smoking Tobacco: Never Smokeless Tobacco: Never Tobacco Cessation:Counseling Given: Not Answered Alcohol Use Standard Drinks/Week Comments Not Currently 0 (1 standard drink = 0.6 oz pur e alcohol) Depression Answer Date Recorded Patient Health Questionnaire-9 Score 0 03/29/2024 Patient Health Questionnaire-9 Score 0 03/29/2024 Last PHQ-9: Questionnaire Data Not on file 0 03/29/2024 Housing Stability Answer Date Recorded What is your housing situation today? I have tani salvador 09/25/[address] you li ve. Do you have problems with any of the following? None of the above 09/25/2024 Food Insecurity Answer Date Recorded Within the past 12 months, y ou worried that your food would run out before you got money to buy more: Never True 09/25/2024 Within the past 12 months,th e food you bought just didn't last and you didn't have enough money to get more: Never True Transportation Answer Date Recorded In the past 12 months, has l ack of transportation kept you from medical appts, meetings, work or from getting things needed for daily living? No 09/25/2024 Utilities Answer Date Recorded In the past 12 months, has t he electric, gas, oil or water company threatened to shut off services in your home? No 09/25/2024 Depression Answer Date Recorded Patient Health Questionnaire-2 Score 0 03/29/2024 Internet Access Answer Date Recorded Internet Access Q1 Yes 09/25/2024 Internet Access Q2 Not on file 09/25/2024 Comments Unknown Sex and Gender Information Value Date Recorded Sex Assigned at Female 01/12/2022 10:35 AM EDT Legal Sex Female 10:35 AM EDT Gender Identity Female 01/12/2022 10:35 AM EDT Sexual Orientation Straight 01/12/2022 10 :35 AM EDT Last Filed Vital Signs Vital Sign Reading Time Taken Comments Blood Pressure 105/69 09/25/2024 10:37 AM EDT Pulse 68 09/25/2024 10:37 AM EDT Temperature 36.5 C (97.7 F) 09/25/2024 10:37 AM EDT Respiratory Rate 20 09/25/2024 10:37 AM EDT Oxygen Saturation 98% 03/29/2024 10:24 AM EST Inhaled Oxygen Concentration - - Weight 73.2 kg (161 lb 6.4 oz) 09/25/2024 10:37 AM EDT Height 157.5 cm (5' 2 ) 09/25/2024 10:37 AM EDT Body Mass Index 29.52 09/25/2024 10:37 AM EDT Plan of Treatment Health Maintenance Due Date Last Done Comments Family Planning (PISQ) 2006 Hepatitis C Screening 2009 Pap Smear 2012 Cervical Cancer Screening 2021 HPV/Cotest 2021 COVID-19 Vaccine ( season) 2023 06/26/2020, 06/01/2020 Influenza Vaccine (#1) 2024 , 12/23/2022, 01/06/2019, Additional history exists Depression Screening 03/29/2025 03/29/2024, 03/29/19 Tobacco Screening 03/29/2025 03/29/2024 Lipid Panel 09/12/2025 09/12/2020 Disability Screening 09/18/2025 09/18/2024 Alcohol/Substance Use Screening 09/25/2025 09/25/2024 SDOH Screening 09/25/2025 09/25/2024 DTaP/Tdap/Td Vaccines (10 - Td or Tdap) 03/16/2033 03/16/2023, 01/06/2019, 08/29/2012, Additional history exists Zoster Vaccines (1 of 2) 2041 RSV Patients and Patients Aged 60 years or older (1 - 1-dose 75+ series) 2066 HIB Vaccines Completed 01/12/1993, 10/15, 1991, Additional history exists IPV Vaccines Completed 03/14/1995, 10/15, 1991, Additional history exists Hepatitis B Vaccines Completed 12/12/1996, 08/12/1996, 07/12/1996 Meningococcal Vaccine Aged Out 12/03/2005 No joo susanna eligible based on patient's age to complete this topic HPV Vaccines Completed 07/01/2007, 02/12, 12/30/2006 HIV Screening Completed 09/12/2020 Hepatitis A Vaccines Aged Out No long er eligible based on patient's age to complete this topic Meningococcal B Vaccine Aged Out No l onger eligible based on patient's age to complete this topic Pneumococcal Vaccine: Pediatrics (0 to 5 Years) and At-Risk Patients (6 to 49) Years Aged Out No longer eligible based on patient's age to complete this topic RSV under 20 months Aged Out No longe r eligible based on patient's age to complete this topic Rotavirus Vaccines Aged Out No longer eligible based on patient's age to complete this topic Procedures Procedure Name Priority Date/Time Associated Diagnosis Comments HIV 1/2 ANTIGEN/ANTIBODY, FOURTH GENERATION W/RFL Routine 09/12/2020 10:39 AM EDT LIPID PANEL, STANDARD Routine 09/12/2020 10:39 AM EDT from Last 3 Months or Most Recently Relevant to Health Maintenance Results * HIV 1/2 ANTIGEN/ANTIBODY,FOURTH GENERATION W/RFL (09/12/2020 10:39 AM EDT) [facility] HIV-1/2 ANTIGEN AND ANTIBODIES, 4TH GENERATION W/ REFLEX NON-REACT HAILEE NON-REACT [facility] Comment: HIV-1 antigen and HIV-1/HIV-2 antibodies were not detected. There is no laboratory evidence of HIV infection. PLEASE NOTE: This information has been disclosed to you from records whose confidentiality may be protected by state law. If your state requires such protection, then the state law prohibits you from making any further disclosure of the information without the specific written consent of the person to whom it pertains, or as otherwise permitted by law. A general authorization for the release of medical or other information is NOT sufficient for this purpose. For additional information please refer to http://education.[employer]/faq/MOE309 (This link is being provided for informational/ educational purposes only.) The performance of this assay has not been clinically validated in patients less than 2 years old. 09/12/2020 10:3 9 AM EDT Wayne Beltran MD LAB BLOOD ORDERABL ES Final Result Performing Organization Address [facility] de Phone Number [facility] [address] * LIPID PANEL, STANDARD (09/12/2020 10:39 AM EDT) Chol/HDLC Ratio 2.5 <5.0 (calc) [facility] Cholesterol, Total 132 <200 mg/dL [facility] HDL Cholesterol 52 > OR = 50 mg/dL [facility] LDL Cholesterol 70 mg/dL (calc) [facility] Comment: Reference range: <100 Desirable range <100 mg/dL for primary prevention; <70 mg/dL for patients with CHD or diabetic patients with > or = 2 CHD risk factors. LDL-C is now calculated using the Shalom-Tonia calculation, which is a validated novel method providing better accuracy than the Friedewald equation in the estimation of LDL-C. Shalom SOLITARIO et al. LUCIE. 2013;310(19): 9435-1884 (http://education.[employer].com/faq/ZTC240) Non-HDL Cholesterol 80 <130 mg/dL (calc) [facility] Comment: For patients with diabetes plus 1 major ASCVD risk factor, treating to a non-HDL-C goal of <100 mg/dL (LDL-C of <70 mg/dL) is considered a therapeutic option. Triglycerides 35 <150 mg/dL [facility] 09/12/2020 10:3 9 AM EDT us Wayne Beltran MD LAB BLOOD ORDERABL ES Final Result Performing Organization Address [facility] Co de Phone Number [facility] [address] from Last 3 Months or Most Recently Relevant to Health Maintenance Insurance * Guarantor: Reji Echeverria Account Type Relation to Patient Date of Phone Billing Address Personal/Family Self [address] [place] [address] [facility] Care Teams Celery Tier Relationship Specialty Start Date End Date Wayne Nguyen MD [address] [place] [id number] PCP - General Internal Medicine 01/23/19
--- OUTSIDE RECORDS SUMMARY | 2024-09-25 12:10 | XMS_ITS | Clinical Summary ---
Author Organization [facility] Address [address] [place] [address] Care Team Providers Care Database Administration Associate Name Role Phone Unavailable Primary Care Provider Unavailabl e Surgical History Surgery Date Site/Laterality Comments SECTION 08/2012 PROCEDURE: HISTORICAL OTHER SURGICAL HISTORY PROCEDURE: [place] EXCISION PILONIDAL CYST/SINUS COMPLICATED Medical History Medical History Date Comments History of 08/2012 DX:History of Anemia in 03/2019 DX:Anemia in Obesity (BMI 35.0-39.9 witho ut comorbidity) 04/2019 DX:Obesity (BMI 35.0-39.9 wi thout comorbidity) Family History Medical History Relation Name Comments Diabetes Father Hypertension Father Other: CVD Father Breast cancer Maternal Grandmother Diabetes Maternal Grandmother Breast cancer Mother Other: PRE DIABETES Mother No Known Problems Paternal Grandfather Diabetes Paternal Grandmother No Known Problems Sister Relation Name Status Comments Father Alive Maternal Grandfather Alive Maternal Grandmother Alive Mother Alive Paternal Grandfather Paternal Grandmother Alive Sister Alive Social History Tobacco Use Types Packs/Day Years Used Date Smoking Tobacco: Never Smokeless Tobacco: Never Alcohol Use Standard Drinks/Week Comments No 0 (1 standard drink = 0.6 oz pur e alcohol) Comments Unknown Sex and Gender Information Value Date Recorded Sex Assigned at Not on file Legal Sex Female 1:57 PM EST Gender Identity Not on file Sexual Orientation Not on file Obstetrics History Plan of Treatment Health Maintenance Due Date Last Done Comments DTaP,Tdap,and Td Vaccines (1 - Tdap) 2010 Hepatitis B Vaccines (1 of 3 - 19+ 3-dose series) 2010 Cervical Cancer Screening: P ap Smear 2012 COVID-19 Vaccine (2023-2 5 season) 2023 Influenza Vaccine (#1) 2024 HIB Vaccines Aged Out No longer eligi ble based on patient's age to complete this topic HPV Vaccines Aged Out No longer eligi ble based on patient's age to complete this topic Hepatitis A Vaccines Aged Out No long er eligible based on patient's age to complete this topic IPV Vaccines Aged Out No longer eligi ble based on patient's age to complete this topic MMR Vaccines Aged Out No longer eligi ble based on patient's age to complete this topic Meningococcal ACWY Vaccine Aged Out N o longer eligible based on patient's age to complete this topic Meningococcal B Vaccine Aged Out No l onger eligible based on patient's age to complete this topic Pneumococcal Vaccine: Pediat rics (0 to 5 Years) and At-Risk Patients (6 to 49 Years) Aged Out No longer eligible b ased on patient's age to complete this topic RSV Immunization Patients Un kali 20 months Aged Out No longer eligible b ased on patient's age to complete this topic Varicella Vaccines Aged Out No longer eligible based on patient's age to complete this topic
--- OUTSIDE RECORDS SUMMARY | 2024-09-25 12:10 | XMS_ITS | Clinical Summary ---
Author Organization [facility] Address [address] [place] [id number] Phone Care Team Providers Care Senior Payroll Manager Name Role Phone Blu Marzena ROBERTO Primary Care Provider Immunizations Immunization Administration Dates Next Due DTP 03/14/1995, 4,1991,08/12,1991 HPV, Quadrivalent 07/01/2007,2007,12/31/19 07 Hep B, ped/adol 12/12/1996,08/12/1996,07/12/1996 Hib (PRP-T) 01/12/1993, 2,1991,05/12 IPV 03/14/1995, 2,1991,05/12 Influenza, injectable, trivalent 01/31/2009 MMR 03/14/1995,01/12/1993 Meningococcal Polysaccharide 12/03/2005 Td (adult) (MBL), 2 Lf tetan us toxoid, PF, adsorbed 05/31/2003 Tdap 12/30/2006 Family History Relation Name Status Comments Father Father: Diabete s mellitus Mother Mother: Healthy Other Family history of Diabetes mellitus Sister Sister: Healthy Social History Tobacco Use Types Packs/Day Years Used Date Smoking Tobacco: Never Assessed Comments Unknown Sex and Gender Information Value Date Recorded Sex Assigned at Not on file Legal Sex Female 4:46 PM EDT Gender Identity Not on file Sexual Orientation Not on file Last Filed Vital Signs Vital Sign Reading Time Taken Comments Blood Pressure 106/76 11/18/2011 12:00 AM EDT Pulse - - Temperature 36.6 C (97.8 F) 12/16/2009 12:00 AM EDT Respiratory Rate - - Oxygen Saturation - - Inhaled Oxygen Concentration - - Weight 69.4 kg (153 lb) 11/18/2011 12:00 AM EDT Height 156.2 cm (5' 1.5 ) 11/18/2011 12:00 AM ED T Body Mass Index 28.44 11/18/2011 12:00 AM EDT Plan of Treatment Health Maintenance Due Date Last Done Comments Varicella Vaccines (1 of 2 - 13+ 2-dose series) 2004 DTaP,Tdap,and Td Vaccines (7 - Td or Tdap) 12/30/2016 12/30/2006, 05/31/2003, 03/14/1995, Additional history exists COVID-19 Vaccine ( season) 2023 Influenza Vaccines (#1) 2024 01/31/2009 HIB Vaccines Completed 01/12/1993, 10/15, 1991, Additional history exists IPV Vaccines Completed 03/14/1995, 10/15, 1991, Additional history exists MMR Vaccines Completed 03/14/1995, 01/12/1993 Hepatitis B Vaccines Completed 12/12/1996, 08/12/1996, 07/12/1996 HPV Vaccines Completed 07/01/2007, 02/12, 12/30/2006 Hepatitis A Vaccines Aged Out No long er eligible based on patient's age to complete this topic Men B Vaccine Aged Out No longer elig ible based on patient's age to complete this topic Meningococcal Vaccine Aged Out No joo susanna eligible based on patient's age to complete this topic Pneumococcal Vaccine Aged Out No long er eligible based on patient's age to complete this topic Care Teams Senior Payroll Manager Relationship Specialty Start Date End Date Marzena Hurt NP PCP - General 10/23/16
[2024-09-25 15:01] LABS: MANUAL DIFF FLAG NO
[2024-09-25 15:44] LABS: Hematocrit 33.5 % (37.0-47.0); Hemoglobin 10.4 g/dl (12.0-16.0); Hemoglobin A1C 97.2966 umol/L; Imm Gran Abs Auto 0.02 X10*3/uL (0.00-0.03); Imm Gran Pct Auto 0.3 % (0.0-0.4); Lymphocytes Absolute Auto 2.1 X10*3/uL (1.2-4.9); Mean Corpuscular HGB Conc 31.0 g/dl (31.0-35.0); Mean Corpuscular Hemoglobin 25.9 pg (27.0-33.0); Mean Corpuscular Volume 83.5 fL (80.0-98.0); NRBC Abs Auto 0.000 X10*3/uL (0.0-0.012); NRBC Pct Auto 0.0 /100WBC (0.0-0.2); Platelet Count 451 X10*3/uL (160-400); Red Blood Count 4.01 X10*6/uL (4.20-5.50); Total Hemoglobin (HGBA1C) 2769.0595 umol/L; White Blood Count 6.6 X10*3/uL (4.8-10.8)
[2024-09-25 15:59] LABS: Alanine Aminotransferase 13 U/L (0-31); Albumin Level 4.4 g/dL (3.5-5.0); Alkaline Phosphatase 64 U/L (39-117); Anion Gap 10 (12-20); Aspartate Amino Transferase 26 U/L (5-31); Blood Urea Nitrogen 13 mg/dL (9-16); Calcium 9.1 mg/dL (8.4-10.2); Carbon Dioxide 21 mmol/L (22-29); Chloride 113 mmol/L (96-108); Cholesterol 142 mg/dL (<200); Estimated Glomerular Filt Rate > 60; HDL Cholesterol 55 mg/dL (>40); Potassium 4.4 mmol/L (3.3-5.1); Sodium 140 mmol/L (135-145); Total Protein 7.7 g/dL (6.5-8.0); Triglycerides 28 mg/dL (<150)
[2024-09-26 08:14] LABS: ~HepC Num1 0.14 S/CO (0.00-0.79); ~Hepatitis C Antibody Nonreactive (Nonreactive)
[2024-09-26 15:08] LABS: Iron 21 mcg/dL (30-160); Percent Iron Saturation 8 % (15-50); Total Iron Binding Capacity 256 mcg/dL (228-428); Unsaturated Iron Binding 235 ug/dL
[2024-09-26 15:40] LABS: Folate 4.4 ng/mL (> or = 4.0); Vitamin B12 621 pg/mL (200-900)
== END 2024-09-25 11:06 | disposition home or self-care (01) ==
LOC: HO.CHCLDS 11:05
PROVIDERS: Visit Provider Internal Medicine
DX: E66.812 Obesity, class 2 (principal); E66.09 Other obesity due to excess calories; Z68.37 Body mass index [BMI] 37.0-37.9, adult
CPT/HCPCS: 36415; 80053; 80061; 82607; 82746; 83036; 83540; 84443; 85025; 86803